=== PATIENT | female | born 1975 | race Two or more races ===

== ENCOUNTER 2019-09-04 01:29 | Emergency (ER) | payer OTHER ==
[~2019-09-04] VITALS: Ht 157.5 cm; Wt 68.0 kg
--- NOTE | 2019-09-04 01:45 | NUR ---
[facility] REPORTING SYNCOPAL EPISODE AT HOME. PT CURRENTLY A, OX4 W/ NO C/O PAIN OR DISCOMFORT. -N/V. DENIED ANY MNEDICAL HX BESIDE HYPERTENTION WHICH IS NOT TAKING ANY MEDICATIONS FOR. PT WAS PLACED ON A MONITOR .
[2019-09-04 02:11] LABS: BASOPHILS % (AUTO) 0.4 % (0.0-2.0); EOSINOPHILS % (AUTO) 0.4 % (0.0-6.0); HEMATOCRIT 42 % (33-45); HEMOGLOBIN 14.3 g/dL (11.5-14.8); LYMPHOCYTES # (AUTO) 1.1 /CMM (0.8-4.8); LYMPHOCYTES % (AUTO) 10.7 % (20.0-44.0); MEAN CORPUSCULAR HGB CONC 34 g/dl (31.0-36.0); MEAN CORPUSCULAR VOLUME 88 fL (82-100); MONOCYTES # (AUTO) 0.8 /CMM (0.1-1.30); MONOCYTES % (AUTO) 7.3 % (2.0-12.0); NEUTROPHILS # (AUTO) 8.6 /CMM (1.8-8.9); NEUTROPHILS % (AUTO) 81.2 % (43.0-81.0); PLATELET COUNT (AUTO) 256 /CMM (150-450); RED BLOOD CELL COUNT(AUTO) 4.84 MIL/uL (4.0-5.2); WHITE BLOOD COUNT (AUTO) 10.6 K/uL (4.3-11.0)
[2019-09-04] MEDS: IV NS 0.9% 500 ML BAG IV ONE (02:13)
[2019-09-04 02:22] LABS: ALANINE AMINOTRANSFERASE 35 U/L (12-78); ALBUMIN 3.8 g/dL (3.4-5.0); ALKALINE PHOSPHATASE 65 U/L (46-116); ASPARTATE AMINOTRANSFERASE 15 U/L (15-37); BILIRUBIN,DIRECT 0.1 mg/dL (0.0-0.2); BILIRUBIN,TOTAL 0.3 mg/dL (0.2-1.0); CALCIUM, SERUM 8.5 mg/dL (8.5-10.1); CARBON DIOXIDE 28 mmol/L (21-32); CHLORIDE 102 mmol/L (98-107); CREATININE 0.7 mg/dL (0.6-1.3); GLUCOSE 106 mg/dL (74-106); POTASSIUM 3.8 mmol/L (3.5-5.1); SODIUM SERUM 135 mmol/L (136-145); TOTAL PROTEIN, SERUM 6.9 g/dL (6.4-8.2); UREA NITROGEN, BLOOD 16 mg/dL (7-18)
[2019-09-04] MEDS: IV NS 0.9% 500 ML IV ONE (04:12)
--- NOTE | 2019-09-04 05:44 | NUR ---
Patient discharged to home in stable condition. Written and verbal after care instructions given. Patient and family verbalized understanding of instruction. pt had a steady gaits upon discharge
[2019-09-04 05:47] VITALS: BP 123/77
== END 2019-09-04 05:48 | disposition home or self-care (01) ==
LOC: ER 01:29
DX: R55 Syncope and collapse (principal); R11.0 Nausea
CPT/HCPCS: 36415; 70450; 71045; 80048; 80076; 84484; 85025; 85730; 93005; 99284; J7040 ×2